=== PATIENT | male | born 1995 | race Two or more races ===

== ENCOUNTER 2018-03-08 11:18 | Observation (INO) | payer MEDICAID ==
[~2018-03-08] VITALS: Ht 172.7 cm; Wt 93.0 kg
[2018-03-08] MEDS ORDERED: LORazepam 2MG/ML-1ML VIAL ONE (12:15)
[2018-03-08] MEDS ORDERED: SODIUM CHLORIDE 0.9% 1,000 ML IVB ONE (12:21)
[2018-03-08] MEDS ORDERED: LORazepam 2MG/ML-1ML VIAL IV ONE (12:30)
[2018-03-08] MEDS ORDERED: LEVETIRACETAM INJ 1,000 MG in D5W 5% 100 ML IV ONE (12:30)
[2018-03-08 12:37] LABS: Eosinophils # (auto) 0.2 uL; Monocytes # (auto) 0.4 uL
[2018-03-08 12:39] LABS: Basophils # (auto) 0.1 uL; Basophils % (auto) 0.6 % (0.0-2.0); Eosinophils % (auto) 2.2 % (0.0-7.0); Hematocrit 51.1 % (41.0-53.0); Hemoglobin 16.8 g/dL (13.5-17.5); Lymphocytes # (auto) 1.4 uL; Lymphocytes % (auto) 17.4 % (10.0-50.0); Mean Corpuscular Hemoglobin 27.3 pg (28.0-32.0); Mean Corpuscular Hgb Conc. 32.8 g/dL (32.0-36.0); Mean Corpuscular Volume 83.2 fL (80.0-100.0); Neutrophils % (auto) 74.8 % (37.0-80.0); Nucleated Red Blood Cells % 0.1 %; Platelet Count (auto) 285 10^3/uL (140-450); Red Blood Cells 6.14 10^6/uL (4.5-5.90); Red Cell Distribution Width 13.4 % (11.8-14.3)
[2018-03-08 12:49] LABS: INR 1.03 (0.9-1.15); Partial Thromboplastin Time 29.9 sec (23.78-33.04)
[2018-03-08 12:55] LABS: Blood Alcohol < 3.0 mg/dL (0-5); Magnesium 1.9 mg/dL (1.6-2.6)
[2018-03-08 12:59] LABS: Albumin 3.9 g/dL (3.4-5.0); BUN/Creatinine Ratio 12.5; Calcium 8.3 mg/dL (8.5-10.1); Potassium 4.2 mmol/L (3.5-5.1)
[2018-03-08 13:02] LABS: Bilirubin, Total 1.6 mg/dL (0.2-1.0); Total Protein 8.1 g/dL (6.4-8.2)
[2018-03-08 14:36] LABS: Urine Bacteria NONE SEEN /hpf (None Seen); Urine Blood Negative /uL (Negative); Urine WBC <1 /hpf (0 - 3)
[2018-03-08 14:53] LABS: Alcohol, Urine < 3.0 mg/dL (0-5); Amphetamine Screen, Urine NEGATIVE (NEGATIVE); Barbiturate Scree,Urine NEGATIVE (NEGATIVE); Benzodiazephine Screen, Urine NEGATIVE (NEGATIVE); Cannabinoid Screen, Urine NEGATIVE (NEGATIVE); Cocaine Screen, Urine NEGATIVE (NEGATIVE); Opiate Scree,Urine NEGATIVE (NEGATIVE); Phencyclidine Screen, Urine NEGATIVE (NEGATIVE)
[2018-03-08 17:08] VITALS: BP 104/77
== END 2018-03-08 17:36 | disposition home or self-care (01) | DRG 384 ==
LOC: ER 11:18 → OVERFLOW 11:19 → ER 17:36
PROVIDERS: ADMIT Family Medicine; ATTEND Family Medicine
DX: S00.83XA Contusion of other part of head, initial encounter (principal); G40.909 Epilepsy, unspecified, not intractable, without status epilepticus; R94.5 Abnormal results of liver function studies; W19.XXXA Unspecified fall, initial encounter; Y93.89 Activity, other specified; Y92.090 Kitchen in other non-institutional residence as the place of occurrence of the external cause; Y99.8 Other external cause status; Z82.49 Family history of ischemic heart disease and other diseases of the circulatory system; Z91.14 Patient's other noncompliance with medication regimen
CPT/HCPCS: 36415; 70450; 70486; 71045; 72125; 80053; 80307; 80320; 81001; 82962; 83735; 85025; 85610; 85730; 96365; 96372; 99285; G0378; J1953; J2060; J7060